=== PATIENT | female | born 1975 | race African-American/Black ===

== ENCOUNTER 2020-09-06 20:47 | Emergency (ER) | payer MEDICAID, OTHER ==
[~2020-09-06] VITALS: Ht 167.6 cm; Wt 59.0 kg
[2020-09-06 21:47] LABS: *BILIRUBIN,URIN NEGATIVE (NEGATIVE); *CLARITY,URINE CLOUDY (CLEAR); *COLOR,URINE DARK YELLOW (YELLOW); *KETONES,URINE NEGATIVE (NEGATIVE); LEUKOCYTE ESTERASE ,URINE 1+ (NEGATIVE); NITRITE, URINE POSITIVE (NEGATIVE); UGLUCOSE NEGATIVE (NEGATIVE)
[2020-09-06 21:49] LABS: *BLOOD, URINE TRACE INTACT (NEGATIVE)
[2020-09-06 22:07] LABS: SQUAMOUS EPITHELIAL CELL,UR MODERATE /HPF (NONE SEEN)
[2020-09-06 22:08] LABS: BACTERIA,URINE MANY /HPF (NONE SEEN)
--- NOTE | 2020-09-06 22:26 | NUR ---
Patient discharged to home in stable condition. Written and verbal after care instructions given. Patient verbalizes understanding of instructions. Stressed follow up or return to ER for worsening s/s. Ambulated from ER with stable gait. All belongings with patient. VSS
[2020-09-06 22:27] VITALS: BP 128/81
[2020-09-06] MEDS ORDERED: CEphaleXIN 500 MG CAPSULE ONE (22:27)
[2020-09-06] MEDS ORDERED: CEphaleXIN 500 MG CAPSULE PO ONE (22:30)
== END 2020-09-06 22:28 | disposition home or self-care (01) ==
LOC: ER 20:50
DX: N39.0 Urinary tract infection, site not specified (principal); R31.29 Other microscopic hematuria; Z87.440 Personal history of urinary (tract) infections
CPT/HCPCS: 87077; 87086; A4663

== ENCOUNTER 2023-10-07 19:03 | Inpatient (IN) | payer MEDICAID ==
[~2023-10-07] VITALS: Ht 167.6 cm; Wt 63.5 kg
[2023-10-07] MEDS ORDERED: ARIP300S3 IM (19:21)
[2023-10-07] MEDS ORDERED: IV NORMAL SALINE 1000 ML BAG IV ONE (20:00)
[2023-10-07 20:23] LABS: BASOPHILS % (AUTO) 0.7 % (0.0-2.0); DIFFERENTIAL COMMENT 1; EOSINOPHILS # (AUTO) 0.5 K/uL (0.0-0.7); EOSINOPHILS % (AUTO) 7.3 % (0.0-7.0); HEMATOCRIT 42.2 % (31.2-41.9); HEMOGLOBIN 14.1 g/dL (10.9-14.3); LYMPHOCYTES # (AUTO) 1.6 K/uL (0.8-4.8); LYMPHOCYTES % (AUTO) 24.1 % (20.5-51.5); MEAN CORPUSCULAR HEMOGLOBIN 27.9 uug (24.7-32.8); MEAN CORPUSCULAR HGB CONC 34 g/dL (32.3-35.6); MEAN CORPUSCULAR VOLUME 83.3 fL (75.5-95.3); MONOCYTES # (AUTO) 0.6 K/uL (0.1-1.30); MONOCYTES % (AUTO) 8.8 % (0.0-11.0); NEUTROPHILS % (AUTO) 59.1 % (38.5-71.5); PLATELET COUNT (AUTO) 207 K/uL (179-408); RED BLOOD CELL COUNT(AUTO) 5.06 MIL/uL (3.63-4.92); RED CELL DISTRIBUTION WIDTH 13.4 % (12.3-17.7); WHITE BLOOD COUNT (AUTO) 6.8 K/uL (3.8-11.8)
[2023-10-07 20:29] LABS: *BILIRUBIN,URIN NEGATIVE (NEGATIVE); *BLOOD, URINE NEGATIVE (NEGATIVE); *CLARITY,URINE CLEAR (CLEAR); *COLOR,URINE YELLOW (YELLOW); *KETONES,URINE NEGATIVE (NEGATIVE); *PROTEIN,URINE NEGATIVE (NEGATIVE); *UROBILINOGEN,URINE 0.2 E.U./dl (NORMAL); LEUKOCYTE ESTERASE ,URINE NEGATIVE (NEGATIVE); NITRITE, URINE NEGATIVE (NEGATIVE); UGLUCOSE NEGATIVE (NEGATIVE)
[2023-10-07 20:31] LABS: CALCIUM 9.1 mg/dL (8.5-10.1); POTASSIUM 4.4 mmol/L (3.5-5.1)
[2023-10-07] MEDS ORDERED: IV NORMAL SALINE 250 ML IV ONE (20:32)
[2023-10-07] MEDS ORDERED: SWABABLE VALVE TRANSFER SET EA MC ONE (20:32)
[2023-10-07] MEDS ORDERED: IOHEXOL 300MG/ML 100 ML INFUS..BTL ONE (20:32)
[2023-10-07 20:37] LABS: ALBUMIN 4.2 g/dL (3.4-5.0); BILIRUBIN,DIRECT 0.1 mg/dL (0.0-0.2); BILIRUBIN,TOTAL 0.3 mg/dL (0.2-1.0); TOTAL PROTEIN, SERUM 7.6 g/dL (6.4-8.2)
[2023-10-08] MEDS ORDERED: MAGNESIUM HYDROXIDE 30 ML LIQUID UDC PO PRN (02:45)
[2023-10-08] MEDS ORDERED: MORPHINE SULFATE 2 MG/1 ML DISP.SYRIN IV PRN ×2 (02:45→05:35)
[2023-10-08] MEDS ORDERED: ONDANSETRON 4 MG/2 ML VIAL IV PRN (02:45)
[2023-10-08] MEDS ORDERED: REMEDY ESSENTIAL ZINC PASTE 113 GM TP PRN (02:45)
[2023-10-08] MEDS ORDERED: ACETAMINOPHEN 325 MG TABLET PO PRN (02:45)
[2023-10-08 03:40] VITALS: BP_SYST 111; BP_SYST 129; BP_DIAS 85; BP_DIAS 92; TEMP 98; O2SAT 96; O2SAT 98
[2023-10-08] MEDS: IV NS 1000 ML 1,000 ML IV PRN ×2 (06:45→18:25)
[2023-10-08 10:51] VITALS: BP 119/80; TEMP 97.7; O2SAT 100
[2023-10-09 05:46] VITALS: BP 131/88; TEMP 97.6; O2SAT 98
[2023-10-09 06:24] LABS: EOSINOPHILS # (AUTO) 0.5 K/uL (0.0-0.7); EOSINOPHILS % (AUTO) 11.2 % (0.0-7.0); HEMATOCRIT 37.7 % (31.2-41.9); HEMOGLOBIN 12.4 g/dL (10.9-14.3); LYMPHOCYTES # (AUTO) 1.4 K/uL (0.8-4.8); MEAN CORPUSCULAR HEMOGLOBIN 27.7 uug (24.7-32.8); MEAN CORPUSCULAR HGB CONC 33 g/dL (32.3-35.6); MONOCYTES # (AUTO) 0.4 K/uL (0.1-1.30); MONOCYTES % (AUTO) 8.7 % (0.0-11.0); NEUTROPHILS # (AUTO) 2.4 K/uL (1.8-8.9); NEUTROPHILS % (AUTO) 50.1 % (38.5-71.5); PLATELET COUNT (AUTO) 172 K/uL (179-408); RED BLOOD CELL COUNT(AUTO) 4.48 MIL/uL (3.63-4.92); RED CELL DISTRIBUTION WIDTH 13.5 % (12.3-17.7); WHITE BLOOD COUNT (AUTO) 4.7 K/uL (3.8-11.8)
[2023-10-09 06:38] LABS: DIFFERENTIAL COMMENT 1
[2023-10-09 07:06] LABS: CALCIUM 8.9 mg/dL (8.5-10.1); CREATININE 0.8 mg/dL (0.6-1.3); MAGNESIUM 1.9 mg/dL (1.8-2.4); PHOSPHOROUS 4.6 mg/dL (2.5-4.9); POTASSIUM 4.2 mmol/L (3.5-5.1)
[2023-10-09] MEDS: IV NS 1000 ML 1,000 ML IV PRN (08:45)
[2023-10-09 11:20] VITALS: BP 117/70; TEMP 98.6; O2SAT 97
== END 2023-10-09 12:06 | disposition home or self-care (01) | DRG 254 ==
LOC: ER 19:07 → MEDSURG3 10-08 03:13
PROVIDERS: ADMIT Student in an Organized Health Care Education/Training Program; ATTEND Student in an Organized Health Care Education/Training Program
DX: K43.6 Other and unspecified ventral hernia with obstruction, without gangrene (principal); F32.A Depression, unspecified
CPT/HCPCS: 36415; 71045; 83690; 83735; 84100; 85025; A4663; G0378; J7040; Q9967

== ENCOUNTER 2025-10-06 22:16 | Emergency (ER) | payer MEDICAID, OTHER ==
[~2025-10-06] VITALS: Ht 170.2 cm; Wt 74.8 kg
[~2025-10-06 22:16] MED LIST: ARIP300S3 IM; ONDA4TAB5 PO
[2025-10-06 23:47] LABS: PLATELET COUNT (AUTO) 228 K/uL (179-408); RED BLOOD CELL COUNT(AUTO) 4.72 MIL/uL (3.63-4.92); RED CELL DISTRIBUTION WIDTH 14.7 % (12.3-17.7); WHITE BLOOD COUNT (AUTO) 7.1 K/uL (3.8-11.8)
[2025-10-06 23:55] LABS: CREATININE 0.8 mg/dL (0.6-1.3); SODIUM SERUM 142.0 mmol/L (136-145); UREA NITROGEN, BLOOD 9.0 mg/dL (7-18)
[2025-10-07 00:01] LABS: ASPARTATE AMINOTRANSFERASE 17.0 U/L (15-37); TOTAL PROTEIN, SERUM 7.1 g/dL (6.4-8.2)
[2025-10-07 05:15] LABS: PLATELET COUNT (AUTO) 195 K/uL (179-408); RED BLOOD CELL COUNT(AUTO) 4.47 MIL/uL (3.63-4.92); RED CELL DISTRIBUTION WIDTH 14.4 % (12.3-17.7); WHITE BLOOD COUNT (AUTO) 5.7 K/uL (3.8-11.8)
[2025-10-07] MEDS: IV NS 1000 ML 1,000 ML IV ONE (05:42)
[2025-10-07] MEDS ORDERED: IOHEXOL 350 100 ML INFUS..BTL ONE (06:47)
[2025-10-07] MEDS ORDERED: IV NORMAL SALINE 250 ML IV ONE (06:47)
[2025-10-07] MEDS ORDERED: SWABABLE VALVE TRANSFER SET EA MC ONE (06:47)
[2025-10-07 08:46] LABS: *OCCULT BLOOD STOOL POSITIVE (NEGATIVE)
[2025-10-07 17:02] VITALS: BP 151/95; O2SAT 100
== END 2025-10-07 19:50 | disposition short-term general hospital (02) ==
LOC: ER 22:27
DX: K92.1 Melena (principal); F32.A Depression, unspecified; D50.9 Iron deficiency anemia, unspecified; K59.00 Constipation, unspecified; Z98.891 History of uterine scar from previous surgery
CPT/HCPCS: 99285; 96360; 96361; 82270 ×2; 80076; 80048; 85025 ×2; 85730; 74174; 36415; 74018; Q9967; J7040; A4606; A4663

== ENCOUNTER 2025-10-28 03:03 | Emergency (ER) | payer OTHER ==
[~2025-10-28] VITALS: Ht 170.2 cm; Wt 74.8 kg
[~2025-10-28 03:03] MED LIST changes: -ONDA4TAB5 PO
[2025-10-28] MEDS ORDERED: DICYCLOMINE HCL 20 MG TABLET ONE (03:38)
[2025-10-28] MEDS ORDERED: ONDANSETRON ODT 4 MG TAB.RAPDIS ONE (03:38)
[2025-10-28] MEDS ORDERED: PANTOPRAZOLE SODIUM 40 MG TABLET.DR PO ONE (03:38)
[2025-10-28] MEDS: DICYCLOMINE HCL 10 MG CAPSULE PO STA (03:53)
[2025-10-28] MEDS: ONDANSETRON ODT 4 MG TAB.RAPDIS SL ONE (03:53)
[2025-10-28] MEDS: PANTOPRAZOLE SODIUM 40 MG TABLET.DR PO ONE (03:53)
[2025-10-28 03:54] LABS: PLATELET COUNT (AUTO) 256 K/uL (179-408); RED BLOOD CELL COUNT(AUTO) 4.58 MIL/uL (3.63-4.92); RED CELL DISTRIBUTION WIDTH 14.3 % (12.3-17.7); WHITE BLOOD COUNT (AUTO) 6.5 K/uL (3.8-11.8)
[2025-10-28 04:04] LABS: ASPARTATE AMINOTRANSFERASE 15.0 U/L (15-37); CREATININE 0.7 mg/dL (0.6-1.3); SODIUM SERUM 140.0 mmol/L (136-145); TOTAL PROTEIN, SERUM 7.1 g/dL (6.4-8.2); UREA NITROGEN, BLOOD 9.0 mg/dL (7-18)
[2025-10-28 04:46] LABS: *BILIRUBIN,URIN NEGATIVE (NEGATIVE); *BLOOD, URINE NEGATIVE (NEGATIVE); *CLARITY,URINE CLEAR (CLEAR); *COLOR,URINE YELLOW (YELLOW); *KETONES,URINE 1+ (NEGATIVE); *PROTEIN,URINE TRACE (NEGATIVE); *UROBILINOGEN,URINE 1.0 E.U./dl (NORMAL); LEUKOCYTE ESTERASE ,URINE NEGATIVE (NEGATIVE); NITRITE, URINE NEGATIVE (NEGATIVE); UGLUCOSE NEGATIVE (NEGATIVE)
[2025-10-28 04:51] LABS: SQUAMOUS EPITHELIAL CELL,UR MODERATE /HPF (NONE SEEN)
[2025-10-28 06:00] VITALS: BP 126/69
[2025-10-28 07:02] VITALS: BP 124/74; TEMP 98.2; O2SAT 98
== END 2025-10-28 06:45 | disposition home or self-care (01) ==
LOC: ER 03:06
DX: R10.31 Right lower quadrant pain (principal); F32.A Depression, unspecified; Z79.899 Other long term (current) drug therapy
CPT/HCPCS: 36415; 83605; 83735; 85025; 86140; A4606; A4663; Q0162